=== PATIENT | female | born 1930 | race Caucasian/White ===

== ENCOUNTER → 2018-02-23 | Outpatient (CLI) | payer OTHER ==
[~2018-02-23] MED LIST: ASPIRIN80 MG PO; DONEPEZIL HYDRO10 MG PO; EVI60 PO; IBU600 MG PO; LEVOTHYROXIN0.075 MG PO; LOSARTAN POTASS50 MG PO; MECLIZINE25 M1 PO; NAMENDA10 M1 PO; TYLENOL W/CODEI30 M PO; VITAMIN D32000 IU PO
[2018-02-23 16:48] LABS: BASOPHIL % 0.9 % (0-2); PLATELET COUNT 149 x10^3mcL (130-400)
[2018-02-23 16:50] LABS: RED CELL DISTRIBUTION WIDTH 14.6 % (11.5-14.5)
[2018-02-23 17:07] LABS: ALBUMIN 3.6 g/dL (3.4-5.0); ALKALINE PHOSPHATASE 133 U/L (46-116); ALT/SGPT 18 U/L (14-59); AST/SGOT 20 U/L (15-37); BILIRUBIN TOTAL 0.6 mg/dL (0.20-1.00); CALCIUM 8.1 mg/dL (8.5-10.1); CARBON DIOXIDE 26.6 mmol/L (21-32); CHLORIDE SERUM 106 mmol/L (98-107); CHOLESTEROL 135 mg/dL (<200); CHOLESTEROL/HDL RATIO 3.2; GLUCOSE SERUM 82 mg/dL (74-106); HDL CHOLESTEROL 42 mg/dL (40-60); SODIUM SERUM 140 mmol/L (136-145); TOTAL PROTEIN, SERUM 6.9 g/dL (6.4-8.2); TRIGLYCERIDES 145 mg/dL (<150)
== END | disposition home or self-care (01) ==
LOC: LB 15:57
DX: I10 Essential (primary) hypertension (principal); R74.0 Nonspecific elevation of levels of transaminase and lactic acid dehydrogenase [LDH]; E72.11 Homocystinuria; R94.6 Abnormal results of thyroid function studies; R82.90 Unspecified abnormal findings in urine; Z13.818 Encounter for screening for other digestive system disorders

== ENCOUNTER → 2018-06-15 | Outpatient (CLI) | payer OTHER | END | disposition home or self-care (01) | LOC: LB 15:52 | DX: R74.0 Nonspecific elevation of levels of transaminase and lactic acid dehydrogenase [LDH] (principal); I10 Essential (primary) hypertension ==

== ENCOUNTER → 2019-03-30 | Outpatient (CLI) | payer OTHER ==
[2019-03-30 12:40] LABS: BASOPHIL % 0.7 % (0-2); PLATELET COUNT 148 x10^3mcL (130-400); RED CELL DISTRIBUTION WIDTH 14.1 % (11.5-14.5)
[2019-03-30 12:56] LABS: ALKALINE PHOSPHATASE 102 U/L (46-116); ALT/SGPT 15 U/L (14-59); AST/SGOT 13 U/L (15-37); CALCIUM 8.7 mg/dL (8.5-10.1); CARBON DIOXIDE 26.7 mmol/L (21-32); CHLORIDE SERUM 107 mmol/L (98-107); CHOLESTEROL 150 mg/dL (<200); CHOLESTEROL/HDL RATIO 3.7; GLUCOSE SERUM 104 mg/dL (74-106); HDL CHOLESTEROL 41 mg/dL (40-60); POTASSIUM SERUM 4.2 mmol/L (3.5-5.1); SODIUM SERUM 143 mmol/L (136-145); TOTAL PROTEIN, SERUM 6.4 g/dL (6.4-8.2); TRIGLYCERIDES 109 mg/dL (<150)
[2019-03-30 13:18] LABS: ALBUMIN 3.2 g/dL (3.4-5.0)
== END | disposition home or self-care (01) ==
LOC: LB 11:39
DX: Z00.00 Encounter for general adult medical examination without abnormal findings (principal); E03.9 Hypothyroidism, unspecified; E55.9 Vitamin D deficiency, unspecified; E66.9 Obesity, unspecified; R79.89 Other specified abnormal findings of blood chemistry